=== PATIENT | female | born 1955 | race Caucasian/White ===

== ENCOUNTER 2020-12-14 07:05 | Outpatient (CLI) | payer BC ==
[2020-12-14] MEDS ORDERED: Magnevist 469MG/ML 20 ML VIAL ONE (10:28)
== END 2020-12-14 07:06 | disposition home or self-care (01) ==
LOC: BICMRI 07:05
PROVIDERS: ATTEND Psychiatry & Neurology Neurology
DX: G35 Multiple sclerosis (principal); M50.30 Other cervical disc degeneration, unspecified cervical region
CPT/HCPCS: 72156; 82565; A9579

== ENCOUNTER 2021-11-27 11:02 | Emergency (ER) | payer BC ==
[2021-11-27 14:07] LABS: Bilirubin Negative (Negative); Blood, Urine Negative (Negative); Clarity Clear (Clear); Glucose, Urine (Dipstick) Normal (Negative); Ketone, Urine Negative (Negative); Leukocyte Negative Leu/uL (Negative); Nitrite Negative (Negative); Protein, Urine (Dipstick) Negative (Neg-Trace); Specific Gravity, Urine 1.013 (1.002-1.036); Urobilinogen Normal mg/dL (Less than 2); pH, Urine 5.5 (5.0-9.0)
== END 2021-11-27 14:18 | disposition home or self-care (01) ==
LOC: ERS 11:02
DX: M54.42 Lumbago with sciatica, left side (principal); G35 Multiple sclerosis; I10 Essential (primary) hypertension; Z79.899 Other long term (current) drug therapy
CPT/HCPCS: 81003; 99283

== ENCOUNTER 2022-04-18 08:54 | Outpatient (CLI) | payer BC ==
[2022-04-18] MEDS ORDERED: Magnevist 469MG/ML 20 ML VIAL ONE ×3 (11:14)
== END 2022-04-18 08:55 | disposition home or self-care (01) ==
LOC: MRI 08:54
PROVIDERS: ATTEND Psychiatry & Neurology Neurology
DX: G35 Multiple sclerosis (principal); G95.9 Disease of spinal cord, unspecified; M50.31 Other cervical disc degeneration, high cervical region; M48.02 Spinal stenosis, cervical region; M53.82 Other specified dorsopathies, cervical region; G93.9 Disorder of brain, unspecified
CPT/HCPCS: 70553; 72156; 72157